=== PATIENT | female | born 1965 | race American Indian/Alaskan Native ===

== ENCOUNTER 2019-11-19 11:36 | Observation (INO) | payer OTHER ==
[2019-11-19 11:42] VITALS: BMI 24.7
--- NOTE | 2019-11-19 11:47 | PDOC ---
Rapid Medical Evaluation Chief Complaint: Injury Time Seen by Provider: 11/19/19 11:39 Medical Evaluation: Allergies Allergy/AdvReac Type Severity Reaction Status Date / Time No Known Allergies Allergy Verified 11/19/19 11:42 Vital Signs Temp Pulse Resp BP Pulse Ox 98.9 F 75 18 142/81 99 11/19/19 11:39 11/19/19 11:39 11/19/19 11:39 11/19/19 11:39 11/19/19 11:39 11/19/19 11:47 I have performed a brief in-person evaluation of this patient. The patient presents with a chief complaint of:nausea and dizziness this am w/ syncope, broke tooth. Denies pmhx Pertinent physical exam findings:stable, NAD I have ordered the following:ekg/labs The patient will proceed to the ED for further evaluation 11/19/19 12:02 Discharge Disposition - Diagnosis Syncope Qualifiers: Syncope type: unspecified Qualified Code(s): R55 - Syncope and collapse - Referrals - Patient Instructions - Post Discharge Activity
[2019-11-19 12:15] LABS: BASO % 0.4 % (0-2.0); EOS % 0.4 % (0-4.5); HEMATOCRIT 39.1 % (32.4-45.2); HEMOGLOBIN 12.8 GM/dL (10.7-15.3); LYMPH % 18.8 % (8-40); MCH 29.4 pg (25.7-33.7); MCHC 32.8 g/dl (32.0-36.0); MEAN CELL VOLUME 89.6 fl (80-96); MEAN PLT VOLUME 9.4 fl (7.5-11.1); MONO % 4.8 % (3.8-10.2); NEUT % 75.6 % (42.8-82.8); PLATELET COUNT 245 K/MM3 (134-434); RBC 4.37 M/mm3 (3.60-5.2); RDW 14.2 % (11.6-15.6)
[2019-11-19 12:50] LABS: ALBUMIN 3.9 g/dl (3.4-5.0); ALK PHOS 55 U/L (45-117); ANION GAP 7 MMOL/L (8-16); BLOOD UREA NITROGEN 13.2 mg/dL (7-18); CALCIUM 9.2 mg/dL (8.5-10.1); CHLORIDE 104 mmol/L (98-107); CO2 25 mmol/L (21-32); CREATININE 0.8 mg/dL (0.55-1.3); GLUCOSE,RANDOM 124 mg/dL (74-106); POTASSIUM 4.1 mmol/L (3.5-5.1); SGOT/AST 18 U/L (15-37); SGPT/ALT 19 U/L (13-61); SODIUM 136 mmol/L (136-145); TOT PROT 7.1 g/dl (6.4-8.2)
--- NOTE | 2019-11-19 13:04 | PDOC ---
History of Present Illness - General Chief Complaint: Injury Stated Complaint: FALL Time Seen by Provider: 11/19/19 11:39 History Source: Patient Exam Limitations: No Limitations Past History - Medical History Allergies/Adverse Reactions: Allergies Allergy/AdvReac Type Severity Reaction Status Date / Time No Known Allergies Allergy Verified 11/19/19 11:42 Home Medications: Ambulatory Orders Bimatoprost 0.03% Ophth Soln [Lumigan (Nf)] 1 drop OU HS #0 dropsbtl 04/19/13 Dorzolamide HCl [Trusopt 2%] 1 drop OU DAILY 11/19/19 Anemia: Yes Asthma: No Cancer: No Cardiac Disorders: No CVA: No COPD: No CHF: No Dementia: No Diabetes: No GI Disorders: No Disorders: No HTN: No Hypercholesterolemia: No Liver Disease: No Seizures: No Thyroid Disease: Yes (enlarged) - Surgical History Abdominal Surgery: Yes (D AND C 2005) Appendectomy: No Cardiac Surgery: No Cholecystectomy: No Lung Surgery: No Neurologic Surgery: No Orthopedic Surgery: No - Psycho-Social/Smoking History Smoking History: Never smoked - Substance Abuse Hx (Audit-C & DAST Scrn) How often the patient has a drink containing alcohol: Never Score: In Men: 4 or > Positive; In Women: 3 or > Positive: 0 Screen Result (Pos requires Nsg. Audit-10AR): Negative *Physical Exam - Vital Signs Last Vital Signs Temp Pulse Resp BP Pulse Ox 98.9 F 75 18 142/81 98 11/19/19 11:39 11/19/19 11:39 11/19/19 11:39 11/19/19 11:39 11/19/19 12:09 ED Treatment Course - LABORATORY CBC & Chemistry Diagram: 11/19/19 12:03 11/19/19 12:03 - ADDITIONAL ORDERS Additional order review: Laboratory Results 11/19/19 12:03 Sodium 136 Potassium 4.1 Chloride 104 Carbon Dioxide 25 Anion Gap 7 L BUN 13.2 Creatinine 0.8 Est GFR (CKD-EPI)AfAm 96.87 Est GFR (CKD-EPI)NonAf 83.58 Random Glucose 124 H Calcium 9.2 Total Bilirubin 1.0 AST 18 ALT 19 Alkaline Phosphatase 55 Creatine Kinase 98 Troponin I < 0.02 Total Protein 7.1 Albumin 3.9 11/19/19 12:03 RBC 4.37 MCV 89.6 MCHC 32.8 RDW 14.2 MPV 9.4 D Neutrophils % 75.6 Lymphocytes % 18.8 D Monocytes % 4.8 Eosinophils % 0.4 Basophils % 0.4 Discharge - Discharge Information Clinical Impression/Diagnosis: Syncope Qualifiers: Syncope type: unspecified Qualified Code(s): R55 - Syncope and collapse - Follow up/Referral Referrals: Marco Craig MD [Primary Care Provider] - - Patient Discharge Instructions - Post Discharge Activity
[2019-11-19 13:13] LABS: EPI CELLS 15 /uL (0-25.1); HYALINE CASTS 0 /uL (0-3.1); PH,URINE 7.5 (5.0-8.0); URINE APPEARANCE CLEAR; URINE BACTERIA 109 /uL (0-1359); URINE BILIRUBIN NEGATIVE (NEGATIVE); URINE COLOR YELLOW; URINE GLUCOSE (UA) NEGATIVE (NEGATIVE); URINE KETONE NEGATIVE (NEGATIVE); URINE LEUK ESTERASE TRACE (NEGATIVE); URINE NITRITE NEGATIVE (NEGATIVE); URINE PROTEIN NEGATIVE (NEGATIVE); URINE RBC 17 /uL (0-23.9); URINE WBC 8 /uL (0-25.8)
--- NOTE | 2019-11-19 13:24 | PDOC ---
History of Present Illness - General Chief Complaint: Injury Stated Complaint: FALL Time Seen by Provider: 11/19/19 11:39 History Source: Patient Exam Limitations: No Limitations - History of Present Illness Initial Comments: Pt is a 53 yo F, with no significant PMH, who is presenting via private car from home after a syncopal episode last night. Pt states around 3 am, she got up from bed to go to the bathroom. She was on the toilet (with no straining) and "the next thing I knew I was on the floor". Pt hit her face on the bathroom floor, breaking the cap from her tooth. Pt states her prior syncopal episode was after heavy menses, improved after partial hysterectomy (2012), and has never had an episode since. Pt states "I felt tired all over today," prompting her visit to the ER. Pt denies any fevers/chills, headache, vision changes, chest pain, palpitations, SOB, nausea/vomiting, abdominal pain, urinary symptoms, diarrhea/constipation, or leg swelling. Allergies: NKDA PCP: Dr. Marco Craig No prior cardiology work-up/echo/stress Social: Pt denies any cigarette, alcohol, or drug use. Pt denies any recent travel or sick contacts. Surgical: partial hysterectomy Family: early SC and CVA in father (age 50s) 11/19/19 13:36 11/19/19 14:20 Past History - Travel History Traveled outside of the country in the last 30 days: No Close contact w/someone who was outside of country & ill: No - Medical History Allergies/Adverse Reactions: Allergies Allergy/AdvReac Type Severity Reaction Status Date / Time No Known Allergies Allergy Verified 11/19/19 11:42 Home Medications: Ambulatory Orders Bimatoprost 0.03% Ophth Soln [Lumigan (Nf)] 1 drop OU HS #0 dropsbtl 04/19/13 Dorzolamide HCl [Trusopt 2%] 1 drop OU DAILY 11/19/19 Anemia: Yes Asthma: No Cancer: No Cardiac Disorders: No CVA: No COPD: No CHF: No Dementia: No Diabetes: No GI Disorders: No Disorders: No HTN: No Hypercholesterolemia: No Liver Disease: No Seizures: No Thyroid Disease: Yes (enlarged) - Surgical History Abdominal Surgery: Yes (D AND C 2005) Appendectomy: No Cardiac Surgery: No Cholecystectomy: No Lung Surgery: No Neurologic Surgery: No Orthopedic Surgery: No - Psycho-Social/Smoking History Smoking History: Never smoked - Substance Abuse Hx (Audit-C & DAST Scrn) How often the patient has a drink containing alcohol: Never Score: In Men: 4 or > Positive; In Women: 3 or > Positive: 0 Screen Result (Pos requires Nsg. Audit-10AR): Negative Cardiac Specific PMH - Complaint Specific PMHX Abdominal Aortic Aneurysm: No Angina: No Cardiac Arrhythmia: No Cardiac Stent: No GERD: No Myocardial Infarction: No Pacemaker: No Pulmonary Embolus: No Valvular Heart Disease: No Peripheral Vascular Disease: No Review of Systems - Review of Systems Able to Perform ROS?: Yes Is the patient limited Lithuanian proficient: No Constitutional: Yes: Malaise, Weight Stable. No: Chills, Diaphoresis, Fever, Lo ss of Appetite, Weakness HEENTM: Yes: See HPI, Dental Problems. No: Blurred Vision, Recent change in vision, Double Vision, Nose Congestion, Nose Bleeding, Throat Pain, Mouth Pain, Difficulty Swallowing, Mouth Swelling Respiratory: No: Cough, Orthopnea, Shortness of Breath Cardiac (ROS): Yes: See HPI, Syncope. No: Chest Pain, Edema, Irregular Heart Rate, Lightheadedness, Palpitations, Chest Tightness ABD/GI: No: Constipated, Diarrhea, Nausea, Poor Appetite, Poor Fluid Intake, Vomiting, Abdominal cramping : No: Burning, Dysuria, Frequency, Flank Pain, Hematuria, Pain, Urgency Musculoskeletal: No: Back Pain, Muscle Pain Integumentary: No: Bruising, Change in Color, Rash Neurological: No: Headache, Numbness, Weakness, Unsteady Gait, Dizziness Psychiatric: No: Sleep Pattern Change, Change in Appetite Endocrine: No: Increased Urine, Change in Weight Hematologic/Lymphatic: No: Anemia, Blood Clots, Easy Bleeding, Easy Bruising All Other Systems: Reviewed and Negative *Physical Exam - Vital Signs Last Vital Signs Temp Pulse Resp BP Pulse Ox 98.9 F 75 18 142/81 98 11/19/19 11:39 11/19/19 11:39 11/19/19 11:39 11/19/19 11:39 11/19/19 12:09 - Physical Exam Vitals stable, pt afebrile. Pt in NAD, normal body habitus. Pt alert and oriented x3. air technician generally intact, muscular strength and sensation intact. No midline spinal tenderness, step-offs, or crepitus. TTP over L anterior shoulder with no crepitus. Full ROM L arm and shoulder. Head normocephalic. Small hematoma L forehead. Eyes PERRLA, EOMI. Broken cap tooth #7, #8/9 loose with no avulsion or bleeding. Oropharynx without erythema or exudates, no LAD b/l. No nasal congestion. Hearing intact. Clear heart sounds, S1/S2, no JVD, b/l pedal edema, or heart murmur. Clear lung sounds, no respiratory distress, wheezes, crackles, or accessory muscle use. No abdominal or CVA tenderness to palpation, no rebound, no guarding. Abdomen soft, non-distended, and with normoactive bowel sounds. Skin without jaundice or rash. 11/19/19 15:03 ED Treatment Course - LABORATORY CBC & Chemistry Diagram: 11/19/19 12:03 11/19/19 12:03 - ADDITIONAL ORDERS Additional order review: Laboratory Results 11/19/19 11/19/19 12:41 12:03 Sodium 136 Potassium 4.1 Chloride 104 Carbon Dioxide 25 Anion Gap 7 L BUN 13.2 Creatinine 0.8 Est GFR (CKD-EPI)AfAm 96.87 Est GFR (CKD-EPI)NonAf 83.58 Random Glucose 124 H Calcium 9.2 Total Bilirubin 1.0 AST 18 ALT 19 Alkaline Phosphatase 55 Creatine Kinase 98 Troponin I < 0.02 Total Protein 7.1 Albumin 3.9 Urine Color Yellow Urine Appearance Clear Urine pH 7.5 D Ur Specific [place] 1.015 Urine Protein Negative Urine Glucose (UA) Negative Urine Ketones Negative Urine Blood Negative Urine Nitrite Negative Urine Bilirubin Negative Urine Urobilinogen 1.0 Ur Leukocyte Esterase Trace Urine WBC (Auto) 8 Urine RBC (Auto) 17 Urine Casts (Auto) 0 U Epithel Cells (Auto) 15 Urine Bacteria (Auto) 109 11/19/19 12:03 RBC 4.37 MCV 89.6 MCHC 32.8 RDW 14.2 MPV 9.4 D Neutrophils % 75.6 Lymphocytes % 18.8 D Monocytes % 4.8 Eosinophils % 0.4 Basophils % 0.4 - RADIOLOGY Radiology Studies Ordered: Category Date Time Status CHEST PA & LAT [RAD] Stat Radiology 11/19/19 13:23 Ordered Medical Decision Making - Medical Decision Making Pt was seen at bedside, also will be seen by attending Dr. Worrell. Pt presenting after syncopal episode last night, with no precipitating symptoms. Given family cardiac history and syncope, concerning for cardiac etiology. Will evaluate for ACS, electrolyte abnormalities, infection. Pt declined pain control at this time. Will continue to reassess pt and monitor for symptomatic improvement. ECG: NSR, intervals WNL. No TWIs or significant ST segment changes. No prior ECG for comparison. 11/19/19 15:05 CBC and CMP WNL Trop <.02 with no ECG abnormalities UA without infection Admitted to tele obs to Dr. Gu (for Dr. Craig). Pt stable and resting comfortably. 11/19/19 15:08 Discharge - Discharge Information Problems reviewed: Yes Clinical Impression/Diagnosis: Syncope Qualifiers: Syncope type: unspecified Qualified Code(s): R55 - Syncope and collapse Closed head injury Qualifiers: Encounter type: initial encounter Qualified Code(s): S09.90XA - Unspecified injury of head, initial encounter Condition: Stable - Admission Yes - Follow up/Referral - Patient Discharge Instructions - Post Discharge Activity
--- NOTE | 2019-11-19 13:32 | HP ---
Admitting History and Physical - Primary Care Physician PCP: Marco Craig - Admission Chief Complaint: syncope History of Present Illness: Patient was brought in to ER by her She had woken up at 3 AM to urinate and felt her stomach to be queesy when she was urinating. Had experienced a sharp pain in right elbow as well and then found her self face forward in the floor-- her found her in the floor- she broke her tooth cap in the front and hit her lef shoulder Had pain in mouth and shoulder She has previous pain in right elbow-- h/o tennis elbow She had similar episode of syncope about 2 years ago when she went to bathroom and experienced sharp pain in lower back and felt a queesy stomach. At that time, her PMD examined her and felt she was fine-- no cardiac work up ever done She is pretty much an active person-- not working now-- she exercises daily, walks about 2- 3 miles. No recent travel history, no recent visitors, no family gatherings. No sick contacts no children History Source: Patient Limitations to Obtaining History: No Limitations - Past Medical History ...LMP: 03/17/13 - Smoking History Smoking history: Never smoked - Alcohol/Substance Use Hx Alcohol Use: Yes (OCCASIONALLY) - Social History Usual Living Arrangement: Yes: With Spouse ADL: Independent History of Recent Travel: No Home Medications - Allergies Allergies/Adverse Reactions: Allergies Allergy/AdvReac Type Severity Reaction Status Date / Time No Known Allergies Allergy Verified 11/19/19 11:42 - Home Medications Home Medications: Ambulatory Orders Bimatoprost 0.03% Ophth Soln [Lumigan (Nf)] 1 drop OU HS #0 dropsbtl 04/19/13 Dorzolamide HCl [Trusopt 2%] 1 drop OU DAILY 11/19/19 Dorzolamide HCl/Timolol Maleat [Cosopt Eye Drops] 10 ml OP BID 11/20/19 Family Medical History Family Hx Cardiac Disorders: Father ([place] and stroke-- in his 60's) Family Hx Diabetes: Mother, Sister Review of Systems - Review of Systems Constitutional: denies: Chills, Fever Physical Examination Vital Signs: Vital Signs Temperature 98.9 F 11/19/19 11:39 Pulse Rate 75 11/19/19 11:39 Respiratory Rate 18 07/08/20 11:39 Blood Pressure 142/81 07/08/20 11:39 O2 Sat by Pulse Oximetry (%) 98 11/19/19 12:09 Constitutional: Yes: No Distress, Calm Cardiovascular: Yes: Regular Rate and Rhythm Respiratory: Yes: CTA Bilaterally Gastrointestinal: Yes: Normal Bowel Sounds, Soft. No: Tenderness Edema: No Labs: CBC, BMP 11/19/19 12:03 11/19/19 12:03 Imaging - Results Chest X-ray: Image Reviewed EKG: Image Reviewed Problem List - Problems (1) Closed head injury Code(s): S09.90XA - UNSPECIFIED INJURY OF HEAD, INITIAL ENCOUNTER Qualifiers: Encounter type: initial encounter Qualified Code(s): S09.90XA - Unspecified injury of head, initial encounter (2) Syncope Code(s): R55 - SYNCOPE AND COLLAPSE Qualifiers: Syncope type: unspecified Qualified Code(s): R55 - Syncope and collapse Assessment/Plan PLAN will order serial cardiac enzymes orthostatics CT head Echo and B/L carotid doppler Cardiology eval
--- NOTE | 2019-11-19 13:58 | PDOC ---
Documentation entered by Gerardo Candelaria SCRIBE, acting as scribe for Rocco Worrell MD. Rocco Worrell MD: This documentation has been prepared by the Leni warner Nirvannie, SCRIBE, under my direction and personally reviewed by me in its entirety. I confirm that the documentation accurately reflects all work, treatment, procedures, and medical decision making performed by me. Attending Attestation - Resident Resident Name: JorgeNatalie - ED Attending Attestation I have performed the following: I have examined & evaluated the patient, The case was reviewed & discussed with the resident, I agree w/resident's findings & plan, Exceptions are as noted - HPI HPI: 11/19/19 13:47 The patient is a 53 year old female with no significant past medical history who presents to the emergency department s/p syncope. As per patient, she was getting up from the toilet at which time she lost consciousness and woke up with a broken tooth. Allergies: NKDA Primary Care Physician: Dr. Xochilt Craig - Physicial Exam PE: 11/19/19 13:56 EXAMINATION CONSTITUTIONAL: Well-appearing; well-nourished; in no apparent distress HEAD: Normocephalic; atraumatic EYES: PERRL; EOM intact ENMT: External appears normal; normal oropharynx; + Tooth #7 is missing a crown; tooth #8 and 9 appear loose without evidence of avulsion. No malocclusion is noted. NECK: Supple; non-tender; no cervical lymphadenopathy CARD: Normal S1, S2; no murmurs, rubs, or gallops RESP: Normal chest excursion with respiration; breath sounds clear and equal bilaterally; no wheezes, rhonchi, or rales ABD: Soft, non-distended; non-tender; no palpable organomegaly, no palpable hernias EXT: Normal ROM in all four extremities; Left anterior humeraltender to palpation; distal pulses intact SKIN: Warm, dry, no rash NEURO: Cranial nerves II through XII are grossly intact; motor is five 5 x 4; no pronation drift - Medical Decision Making 11/19/19 13:57 Patient is a 53-year-old female who presents to the ER with dental injuries after a syncopal episode without preceding presyncopal symptoms. I suspect cardiogenic syncope. No indication for CT head as patient is nonfocal, and no obvious injuries to the calvarium are noted. Will obtain CBC/CMP/cardiac profile. Will admit to telemetry for further evaluation and treatment. Discharge - Discharge Information Problems reviewed: Yes Clinical Impression/Diagnosis: Syncope Qualifiers: Syncope type: unspecified Qualified Code(s): R55 - Syncope and collapse Closed head injury Qualifiers: Encounter type: initial encounter Qualified Code(s): S09.90XA - Unspecified injury of head, initial encounter Condition: Stable - Follow up/Referral - Patient Discharge Instructions - Post Discharge Activity
--- NOTE | 2019-11-19 14:39 | EKG ---
Test Reason : Blood Pressure : / mmHG Vent. Rate : 065 BPM Atrial Rate : 065 BPM P-R Int : 162 ms QRS Dur : 088 ms QT Int : 426 ms P-R-T Axes : 035 067 038 degrees QTc Int : 443 ms NORMAL SINUS RHYTHM NORMAL ECG WHEN COMPARED WITH ECG OF 16-APR-2013 11:27, T WAVE AMPLITUDE HAS DECREASED IN ANTERIOR LEADS Confirmed by MD Mix Daniel ([id number]) on 11/19/2019 2:39:05 PM Referred By: Confirmed By:Maxx Mix MD
--- NOTE | 2019-11-19 16:38 | CON.CARD ---
Consult Consult Specialty:: Cardiology - History of Present Illness History of Present Illness: Pt is a 53 yo F, with no significant PMH, who is presenting via private car from home after a syncopal episode last night. Pt states around 3 am, she got up from bed to go to the bathroom. She was on the toilet (with no straining) and "the next thing I knew I was on the floor". Pt hit her face on the bathroom floor, breaking the cap from her tooth. Pt states her prior syncopal episode was after heavy menses, improved after partial hysterectomy (2012), and has never had an episode since. Pt states "I felt tired all over today," prompting her visit to the ER. Pt denies any fevers/chills, headache, vision changes, chest pain, palpitations, SOB, nausea/vomiting, abdominal pain, urinary symptoms, diarrhea/ constipation, or leg swelling. Allergies: NKDA PCP: Dr. Marco Craig No prior cardiology work-up/echo/stress - History Source History Provided By: Patient - Past Medical History ...LMP: 03/17/13 - Alcohol/Substance Use Hx Alcohol Use: Yes (OCCASIONALLY) - Smoking History Smoking history: Never smoked Home Medications - Allergies Allergies/Adverse Reactions: Allergies Allergy/AdvReac Type Severity Reaction Status Date / Time No Known Allergies Allergy Verified 11/19/19 11:42 - Home Medications Home Medications: Ambulatory Orders Bimatoprost 0.03% Ophth Soln [Lumigan (Nf)] 1 drop OU HS #0 dropsbtl 04/19/13 Dorzolamide HCl [Trusopt 2%] 1 drop OU DAILY 11/19/19 Review of Systems - Review of Systems Constitutional: reports: No Symptoms Eyes: reports: No Symptoms HENT: reports: No Symptoms Neck: reports: No Symptoms Cardiovascular: reports: No Symptoms Respiratory: reports: No Symptoms Gastrointestinal: reports: No Symptoms Genitourinary: reports: No Symptoms Breasts: reports: No Symptoms Reported Musculoskeletal: reports: No Symptoms Integumentary: reports: No Symptoms Neurological: reports: Syncope Endocrine: reports: No Symptoms Hematology/Lymphatic: reports: No Symptoms Psychiatric: reports: No Symptoms Vital Signs: Vital Signs Temperature 98.9 F 11/19/19 11:39 Pulse Rate 75 11/19/19 11:39 Respiratory Rate 18 11/19/19 11:39 Blood Pressure 142/81 11/19/19 11:39 O2 Sat by Pulse Oximetry (%) 98 11/19/19 12:09 Constitutional: Yes: Well Nourished, No Distress, Calm Eyes: Yes: WNL, Conjunctiva Clear, EOM Intact HENT: Yes: WNL, Atraumatic, Normocephalic Neck: Yes: WNL, Supple, Trachea Midline Respiratory: Yes: WNL, Regular, CTA Bilaterally Gastrointestinal: Yes: WNL, Normal Bowel Sounds Renal/: Yes: WNL Cardiovascular: Yes: WNL, Regular Rate and Rhythm Musculoskeletal: Yes: WNL Extremities: Yes: WNL Integumentary: Yes: WNL Neurological: Yes: WNL, Alert, Oriented ...Motor Strength: WNL Psychiatric: Yes: WNL, Alert, Oriented - Other Data Labs, Other Data: CBC, BMP 11/19/19 12:03 11/19/19 12:03 Troponin, BNP 11/19/19 12:03 Troponin I < 0.02 Troponin, BNP 11/19/19 12:03 Troponin I < 0.02 Imaging - Results EKG: Image Reviewed (sr wnl) Problem List - Problems (1) Closed head injury Code(s): S09.90XA - UNSPECIFIED INJURY OF HEAD, INITIAL ENCOUNTER Qualifiers: Encounter type: initial encounter Qualified Code(s): S09.90XA - Unspecified injury of head, initial encounter (2) Syncope Code(s): R55 - SYNCOPE AND COLLAPSE Qualifiers: Syncope type: unspecified Qualified Code(s): R55 - Syncope and collapse Assessment/Plan 53 y.o admitted with syncope while using the toilet at night. Most likely micturition syncope Plan; ECHO Telemetry or 24 Holter FDasting lipid profile
--- NOTE | 2019-11-19 17:22 | ECHO ---
Version: 1 Name: ELISHA RM Exam: Adult Echocardiogram Study Date: 11/19/2019, 3:32 PM Age: 53 Years MMode/2D Measurements & Calculations IVSd: 1.05 cm LVIDs: 2.8 cm LVIDd: 4.1 cm LVPWd: 1.04 cm LAV (MOD-bp): 43.8 ml ACS: 1.72 cm Ao root diam: 2.6 cm LVOT diam: 1.83 cm LA dimension: 3.5 cm Doppler Measurements & Calculations MV E max hakan: 60.6 cm/sec Med E/e': 10.5 MV A max hakan: 78.1 cm/sec Med Peak E' [place]akan: 5.8 cm/sec MV E/A: 0.78 Lat E/e': 7.1 Lat Peak E' [place]akan: 8.5 cm/sec Ao max P.1 mmHg ROSALINE(I,D): 2.07 cm Ao mean P.6 mmHg LV V1 mean: 64.5 cm/sec Ao V2 max: 133.0 cm/sec LV V1 mean P.89 mmHg PI end-d hakan: 63.8 cm/sec Left Ventricle The left ventricular size, thickness and function are normal. Ejection Fraction = 60%. Right Ventricle The right ventricle is normal in size and function. Atria Normal left and right atrial size and function. Mitral Valve The mitral valve is normal in structure and function. There is trace mitral regurgitation. Tricuspid Valve The tricuspid valve is normal in structure and function. There is trace tricuspid regurgitation. Aortic Valve The aortic valve is normal in structure and function. Pulmonic Valve The pulmonic valve is normal in structure and function. Great Vessels The aortic root is normal size. Pericardium/Pleura There is no pleural effusion. Summary Statements The left ventricular size, thickness and function are normal Ejection Fraction = 60%. The right ventricle is normal in size and function. Normal left and right atrial size and function. The mitral valve is normal in structure and function. There is trace mitral regurgitation. The tricuspid valve is normal in structure and function. There is trace tricuspid regurgitation. The aortic valve is normal in structure and function. MD Maxx Mix 11/19/2019, 5:21 PM Ordering Physician: Stefania Gu Referring Physician: STEFANIA GU Performed By: Mimi Woods
[2019-11-19] MEDS ORDERED: LATANOPROST 0.005% OPHTH SOLN 2.5ML BOTTLE OU SCH (22:00)
[2019-11-20] MEDS ORDERED: DORZOLAMIDE 2% HCL OPHTHALMIC SOLUTION 10 ML BOTTLE OU SCH (10:00)
[2019-11-20] MEDS ORDERED: PT OWN MED DRAWER 7, Y5N ONE (10:49)
--- NOTE | 2019-11-20 13:16 | PN ---
Progress Note (short form) - Note Progress Note: no pain in her mouth she has mild pain in left shoulder No chest pain or SOB No palpitations Vital Signs - 24 hr 11/19/19 11/19/19 11/19/19 17:45 18:08 21:00 Temperature 98.1 F 98.1 F Pulse Rate 79 Pulse Rate [ 81 Apical] Respiratory 19 20 20 Rate Blood Pressure 149/82 Blood Pressure 135/82 [Right Arm] O2 Sat by Pulse 99 100 96 Oximetry (%) 11/19/19 11/20/19 11/20/19 22:00 02:00 06:00 Temperature 97.6 F 98.1 F 97.8 F Pulse Rate 76 74 68 Pulse Rate [ Apical] Respiratory 20 20 20 Rate Blood Pressure 136/68 142/87 132/80 Blood Pressure [Right Arm] O2 Sat by Pulse Oximetry (%) 11/20/19 11/20/19 09:00 09:34 Temperature 97.0 F L Pulse Rate 73 Pulse Rate [ Apical] Respiratory 18 18 Rate Blood Pressure 148/91 Blood Pressure [Right Arm] O2 Sat by Pulse 99 Oximetry (%) Current Medications Generic Name Dose Route Start Last Admin Trade Name Freq PRN Reason Stop Dose Admin Dorzolamide HCl 1 drop 11/20/19 10:00 11/20/19 10:50 Trusopt 2% OU 1 drop DAILY MEAGAN Administration Latanoprost 1 drop 11/19/19 22:00 11/19/19 21:41 Xalatan 0.005% Eye Drops - OU 1 drop HS MEAGAN Administration Laboratory Results - last 24 hr 11/19/19 11/20/19 11/20/19 21:15 05:46 06:00 Creatine Kinase 76 64 Troponin I < 0.02 < 0.02 Triglycerides 69 Cholesterol 153 Total LDL Cholesterol 79 HDL Cholesterol 62 H TSH 0.60 Free T4 0.88 S1 s2 RRR Lungs clear Abd- soft, NT no edema A/.p Syncope -- likely vasovagal -- she drinks about 2 liters per day -- not dehydrated -- carotid doppler- negative for stenosis -- CT head-- negative -- Echo-- normal EF -- cardiac enzymes, thyroid function tests, lipids normal --cardiology eval -- may do rest of cardiac work up as an outpt if ok with cardiology - she never had a stress test Problem List - Problems (1) Closed head injury Code(s): S09.90XA - UNSPECIFIED INJURY OF HEAD, INITIAL ENCOUNTER Qualifiers: Encounter type: initial encounter Qualified Code(s): S09.90XA - Unspecified injury of head, initial encounter (2) Syncope Code(s): R55 - SYNCOPE AND COLLAPSE Qualifiers: Syncope type: unspecified Qualified Code(s): R55 - Syncope and collapse
--- NOTE | 2019-11-20 16:45 | PN ---
Progress Note, Physician Chief Complaint: Pt A&Ox3; asypmtomatic. Her is at bedside. History of Present Illness: 53 year old female (b. [place]) , s/p partial hysterectomy years ago, glaucoma, syncope after back pain-->nausea, then fainting years ago, who presents to the emergency department s/p syncope. As per patient, she was getting up from the toilet after urinating; she had had a pain in her right elbow, and when she straightened it, she felt a sharp pain that then led to nausea, at which time she lost consciousness and woke up with a broken tooth. Pt had a similar episode years ago with back pain, and another post- hysterectomy. Allergies: NKDA Primary Care Physician: Dr. Xochilt Craig - Current Medication List Current Medications: Active Medications Dorzolamide HCl (Trusopt 2%) 1 drop OU DAILY [facility] Last Admin: 11/20/19 10:50 Dose: 1 drop Documented by: Latanoprost (Xalatan 0.005% Eye Drops -) 1 drop OU HS [facility] Last Admin: 11/19/19 21:41 Dose: 1 drop Documented by: - Objective Vital Signs: Vital Signs Temperature 98.0 F 11/20/19 13:39 Pulse Rate 65 11/20/19 15:45 Respiratory Rate 18 11/20/19 13:39 Blood Pressure 148/86 11/20/19 15:45 O2 Sat by Pulse Oximetry (%) 99 11/20/19 09:00 Labs: CBC, BMP 11/19/19 12:03 11/19/19 12:03 Assessment/Plan Syncope, likely related to pain-->nausea-->vagal response. Pt "almost always" drinks 2 liters of water a day. She walks 3 miles a day, 3x/wk, does strengthening exercises, and all housework without palpitations, chest pain, or dyspnea. Family hx CAD. ECHO: normal LVEF EKG: normal study. TNI < 0.02 x 3 Telemetry: NSR; no arrhythmias. LDL cholesterol: 79 mg/dL. Plan: From a cardiac standpoint, pt may be followed as an outpatient. She will have a treadmill stress test done as an outpatient.
--- NOTE | 2019-11-20 16:51 | DS ---
Physical Examination Vital Signs: Vital Signs Temperature 98.0 F 11/20/19 13:39 Pulse Rate 65 11/20/19 15:45 Respiratory Rate 18 11/20/19 13:39 Blood Pressure 148/86 11/20/19 15:45 O2 Sat by Pulse Oximetry (%) 99 11/20/19 09:00 Labs: CBC, BMP 11/19/19 12:03 11/19/19 12:03 Discharge Summary Problems reviewed: Yes Reason For Visit: SYNCOPE Current Active Problems Closed head injury (Acute) Syncope (Acute) Condition: Stable - Instructions Referrals: Marco Craig MD [Primary Care Provider] - - Home Medications Comprehensive Discharge Medication List: Ambulatory Orders Bimatoprost 0.03% Ophth Soln [Lumigan (Nf)] 1 drop OU HS #0 dropsbtl 04/19/13 Dorzolamide HCl [Trusopt 2%] 1 drop OU DAILY 11/19/19 Dorzolamide HCl/Timolol Maleat [Cosopt Eye Drops] 10 ml OP BID 11/20/19
[2019-11-20 18:41] VITALS: BP 145/85; PULSE 67; TEMP 98.2
== END 2019-11-20 17:40 | disposition home or self-care (01) ==
LOC: JER 11:36 → JERBED 13:29 → J4W 18:02
PROVIDERS: ADMIT Internal Medicine; ATTEND Internal Medicine
DX: S09.90XA Unspecified injury of head, initial encounter (principal); R55 Syncope and collapse; K08.89 Other specified disorders of teeth and supporting structures; D64.9 Anemia, unspecified; E07.9 Disorder of thyroid, unspecified; Y93.89 Activity, other specified; Y92.89 Other specified places as the place of occurrence of the external cause
CPT/HCPCS: 36415; 70450-TC; 71046-TC-FY; 80053; 80061; 81003; 82550; 83036; 83721; 84439; 84443; 84484; 85025; 93005; 93010; 93306-TC; 93880-TC; 99285-25; G0378; U0003

== ENCOUNTER 2022-09-28 20:25 | Emergency (ER) | payer OTHER ==
[2022-09-28 20:44] VITALS: PULSE 103; RESP 20; TEMP 98; BMI 26.4
[2022-09-28] MEDS ORDERED: LIDOCAINE 5% TOPICAL PATCH TP ONE (21:04)
[2022-09-28] MEDS ORDERED: oxyCODONE HCL 5 MG TABLET PO ONE ×2 (21:05→21:06)
[2022-09-28] MEDS ORDERED: ACETAMINOPHEN 1000 MG/100 ML BAG IVPB ONE (21:08)
[2022-09-28] MEDS ORDERED: oxyCODONE HCL 5 MG TABLET ONE (21:10)
[2022-09-28] MEDS ORDERED: ACETAMINOPHEN INJECTION 100 ML IVPB ONE (21:10)
[2022-09-28] MEDS ORDERED: LIDOCAINE 5% TOPICAL PATCH ONE (21:10)
[2022-09-28 21:18] LABS: BASO % 0.6 % (0-2.0); EOS % 10.4 % (0-4.5); HEMATOCRIT 35.1 % (32.4-45.2); HEMOGLOBIN 11.6 GM/dL (10.7-15.3); LYMPH % 18.8 % (8-40); MCH 26.5 pg (25.7-33.7); MEAN CELL VOLUME 80.3 fl (80-96); MEAN PLT VOLUME 7.6 fl (7.5-11.1); MONO % 7.5 % (3.8-10.2); NEUT % 62.7 % (42.8-82.8); PLATELET COUNT 520 10^3/uL (134-434); RBC 4.37 M/mm3 (3.60-5.2); RDW 15.1 % (11.6-15.6)
[2022-09-28 21:45] LABS: POTASSIUM 4.2 mmol/L (3.5-5.1)
[2022-09-28] MEDS ORDERED: ATENOLOL 25 MG TABLET (FP) PO ONE (21:47)
[2022-09-28 21:48] LABS: CALCIUM 9.2 mg/dL (8.5-10.1)
[2022-09-28 21:49] LABS: BLOOD UREA NITROGEN 10.5 mg/dL (7-18); MAGNESIUM 2.2 mg/dL (1.8-2.4)
[2022-09-28 21:52] LABS: CREATININE 0.5 mg/dL (0.55-1.3); PHOSPHOROUS 3.6 mg/dL (2.5-4.9)
[2022-09-28 21:53] LABS: BILIRUBIN,TOTAL 0.8 mg/dL (0.2-1); TOT PROT 6.9 g/dl (6.4-8.2)
[2022-09-28] MEDS ORDERED: LIDOCAINE PATCH REMOVAL MC ONE (22:00)
[2022-09-28] MEDS ORDERED: ATENOLOL 25 MG TABLET (FP) ONE (22:01)
[2022-09-28 22:25] VITALS: BP 165/86
== END 2022-09-28 22:40 | disposition home or self-care (01) ==
LOC: JER 20:25
PROC: 3E033NZ Introduction of Analgesics, Hypnotics, Sedatives into Peripheral Vein, Percutaneous Approach (ICD-10-PCS; principal; 2022-09-28)
DX: M54.50 Low back pain, unspecified (principal); I10 Essential (primary) hypertension
CPT/HCPCS: 36415; 80053; 83735; 84100; 84484; 85025; 93005; 93010; 99284-25